=== PATIENT | male | born 1940 | race Caucasian/White ===

== ENCOUNTER 2018-01-17 10:03 | Inpatient (IN) | payer OTHER ==
[~2018-01-17] VITALS: Ht 167.6 cm; Wt 57.2 kg
[2018-01-17 10:52] LABS: BASOPHILS % (AUTO) 0.7 % (0.0-5.0); EOSINOPHILS % (AUTO) 1.6 % (0.0-8.0); LYMPHOCYTES % (AUTO) 14.4 % (21.0-51.0); MEAN CORPUSCULAR HEMOGLOBIN 24.8 pg (27.0-33.0); MEAN CORPUSCULAR HGB CONC 32.1 g/dL (32.0-36.0); MEAN CORPUSCULAR VOLUME 77.3 fL (79-99); MONOCYTES % (AUTO) 12.2 % (3.0-13.0); NEUTROPHILS % (AUTO) 71.1 % (40.0-77.0); PLATELET COUNT (AUTO) 440 K/uL (130-400); RED BLOOD CELL COUNT(AUTO) 2.98 MIL/uL (4.50-6.20); RED CELL DISTRIBUTION WIDTH 18.2 % (11.0-15.5); WHITE BLOOD COUNT (AUTO) 10.4 K/uL (4.8-10.8)
[2018-01-17] MEDS ORDERED: SODIUM CHLORIDE 0.9% 1000ML 1,000 ML IV ONE (10:58)
[2018-01-17 11:03] LABS: CREATININE 1.3 mg/dL (0.5-1.5); POTASSIUM 3.8 mmol/L (3.5-5.1)
[2018-01-17 11:09] LABS: ALBUMIN 2.5 g/dL (3.5-5.0); BILIRUBIN,TOTAL 0.3 mg/dL (0.2-1.0); TOTAL PROTEIN, SERUM 7.2 g/dL (6.0-8.3)
[2018-01-17 12:14] LABS: AMPHET/METH SCREEN,URINE NEGATIVE (NEGATIVE); BARBITURATE SCREEN, URINE NEGATIVE (NEGATIVE); BENZODIAZEPINES SCREEN,URINE NEGATIVE (NEGATIVE); CANNABINOID SCREEN,URINE NEGATIVE (NEGATIVE); COCAINE SCREEN,URINE NEGATIVE (NEGATIVE); OPIATE SCREEN,URINE NEGATIVE (NEGATIVE); PHENCYCLIDINE SCREEN,URINE NEGATIVE (NEGATIVE)
[2018-01-17] MEDS ORDERED: VANCOMYCIN 1GM+NS 250ML 250 ML IV ONE (12:24)
[2018-01-17] MEDS ORDERED: ZOSYN 3.375GM+NS 50ML 50 ML IV ONE (19:18)
[2018-01-17 23:40] VITALS: BP 150/78
[2018-01-18] MEDS ORDERED: ACETAMINOPHEN 325 MG TAB PO PRN (02:45)
[2018-01-18] MEDS ORDERED: VANCOMYCIN PROTOCOL PER PHARMACY IV SCH (02:45)
[2018-01-18 04:00] VITALS: BP 126/70
[2018-01-18] MEDS: ZOSYN 3.375GM+NS 50ML 50 ML IV SCH ×3 (04:25→22:34)
[2018-01-18] MEDS: SODIUM CHLORIDE 0.9% 1000ML 1,000 ML IV SCH ×2 (04:32→13:48)
[2018-01-18] MEDS: ACETAMINOPHEN 325 MG TAB PO PRN ×2 (04:32→13:57)
[2018-01-18 05:15] LABS: BASOPHILS % (AUTO) 1.2 % (0.0-5.0); EOSINOPHILS % (AUTO) 1.8 % (0.0-8.0); HEMATOCRIT 23.9 % (42-54); LYMPHOCYTES % (AUTO) 18.8 % (21.0-51.0); MEAN CORPUSCULAR HEMOGLOBIN 24.7 pg (27.0-33.0); MEAN CORPUSCULAR HGB CONC 32.5 g/dL (32.0-36.0); MEAN CORPUSCULAR VOLUME 76.1 fL (79-99); MONOCYTES % (AUTO) 11.5 % (3.0-13.0); NEUTROPHILS % (AUTO) 66.7 % (40.0-77.0); PLATELET COUNT (AUTO) 495 K/uL (130-400); RED BLOOD CELL COUNT(AUTO) 3.14 MIL/uL (4.50-6.20); RED CELL DISTRIBUTION WIDTH 18.4 % (11.0-15.5); WHITE BLOOD COUNT (AUTO) 12.2 K/uL (4.8-10.8)
[2018-01-18 05:16] LABS: RETICULOCYTE % (AUTO) 1.6 % (0.42-2.23)
[2018-01-18 05:40] LABS: CREATININE 1.1 mg/dL (0.5-1.5); THYROID STIMULATING HORMONE 1.55 uIU/mL (0.36-3.74)
[2018-01-18 05:51] LABS: % IRON SATURATION 5.3 % (30-44)
[2018-01-18 05:54] LABS: HEMOGLOBIN A1C 5.6 % (4.0-6.0)
[2018-01-18 08:00] VITALS: BP 143/60
[2018-01-18] MEDS: FOLIC ACID 1 MG TABLET PO SCH (08:51)
[2018-01-18] MEDS: MULTIVITAMIN TABLET PO SCH (08:51)
[2018-01-18] MEDS: THIAMINE HCL 100 MG TABLET PO SCH (08:51)
[2018-01-18] MEDS: VANCOMYCIN 1GM+NS 250ML 250 ML IV SCH (09:10)
[2018-01-18] MEDS: TRAMADOL HCL 50 MG TABLET PO PRN ×2 (09:10→17:09)
[2018-01-18] MEDS: LORAZEPAM 0.5 MG TABLET PO PRN (09:13)
[2018-01-18 11:00] VITALS: BP 122/72
[2018-01-18] MEDS ORDERED: COMPOUND IV MISC 1 EACH IVSOLN MISC PRN (13:30)
[2018-01-18 16:00] VITALS: BP 111/52
[2018-01-18 19:00] VITALS: BP 114/60
[2018-01-18] MEDS ORDERED: MORPHINE SULFATE 2 MG/ML 1ML SYG IVP PRN (20:15)
[2018-01-18 23:00] VITALS: BP 113/52
[2018-01-19 04:05] VITALS: BP 133/48
[2018-01-19] MEDS: ZOSYN 3.375GM+NS 50ML 50 ML IV SCH ×3 (05:01→21:14)
[2018-01-19] MEDS: TRAMADOL HCL 50 MG TABLET PO PRN ×3 (05:22→22:50)
[2018-01-19 08:00] VITALS: BP 134/82
[2018-01-19] MEDS: MULTIVITAMIN TABLET PO SCH (09:10)
[2018-01-19] MEDS: THIAMINE HCL 100 MG TABLET PO SCH (09:10)
[2018-01-19] MEDS: VANCOMYCIN 1GM+NS 250ML 250 ML IV SCH ×2 (09:10→09:22)
[2018-01-19] MEDS: FOLIC ACID 1 MG TABLET PO SCH (09:10)
[2018-01-19] MEDS: LORAZEPAM 0.5 MG TABLET PO PRN (09:10)
[2018-01-19] MEDS: IRON SUCROSE COMPLEX 100 MG in SODIUM CHLORIDE 0.9% 50 ML IV SCH (09:22)
[2018-01-19] MEDS: SODIUM CHLORIDE 0.9% 1000ML 1,000 ML IV SCH (09:27)
[2018-01-19] MEDS ORDERED: MORPHINE SULFATE 4 MG/1ML SYG ONE ×2 (09:49→16:59)
[2018-01-19 11:00] VITALS: BP 133/55
[2018-01-19 16:00] VITALS: BP 128/53
[2018-01-19 19:00] VITALS: BP 100/46
[2018-01-19] MEDS ORDERED: LIDOCAINE HCL/EPINEPHRINE 50 ML VIAL IJ SCH (19:00)
[2018-01-19] MEDS ORDERED: FERROUS SULFATE 325 MG TABLET.DR PO SCH (21:00)
[2018-01-19 23:00] VITALS: BP 100/49
[2018-01-20] MEDS: SODIUM CHLORIDE 0.9% 1000ML 1,000 ML IV SCH ×2 (02:03→14:46)
[2018-01-20 03:00] VITALS: BP 113/57
[2018-01-20] MEDS: ZOSYN 3.375GM+NS 50ML 50 ML IV SCH ×3 (04:42→20:37)
[2018-01-20] MEDS: TRAMADOL HCL 50 MG TABLET PO PRN (04:43)
[2018-01-20 05:07] LABS: HEMATOCRIT 21.7 % (42-54); MEAN CORPUSCULAR HEMOGLOBIN 24.9 pg (27.0-33.0); MEAN CORPUSCULAR HGB CONC 32.7 g/dL (32.0-36.0); MEAN CORPUSCULAR VOLUME 76.3 fL (79-99); PLATELET COUNT (AUTO) 436 K/uL (130-400); RED BLOOD CELL COUNT(AUTO) 2.85 MIL/uL (4.50-6.20); RED CELL DISTRIBUTION WIDTH 18.5 % (11.0-15.5)
[2018-01-20 05:15] LABS: ALBUMIN 1.9 g/dL (3.5-5.0); BILIRUBIN,TOTAL 0.2 mg/dL (0.2-1.0); MAGNESIUM 1.8 mg/dL (1.80-2.40); PHOSPHORUS 3.3 mg/dL (2.5-4.9); POTASSIUM 4.3 mmol/L (3.5-5.1)
[2018-01-20] MEDS ORDERED: MORPHINE SULFATE 4 MG/1ML SYG ONE (05:44)
[2018-01-20 08:00] VITALS: BP 130/60
[2018-01-20] MEDS: MULTIVITAMIN TABLET PO SCH (08:53)
[2018-01-20] MEDS: FOLIC ACID 1 MG TABLET PO SCH (08:53)
[2018-01-20] MEDS: IRON SUCROSE COMPLEX 100 MG in SODIUM CHLORIDE 0.9% 50 ML IV SCH (08:54)
[2018-01-20] MEDS: THIAMINE HCL 100 MG TABLET PO SCH (08:54)
[2018-01-20] MEDS ORDERED: LIDOCAINE 1%-EPI 1:100,000 20 ML VIAL IJ ONE (08:55)
[2018-01-20] MEDS: ACETAMINOPHEN 325 MG TAB PO PRN ×3 (09:09→20:44)
[2018-01-20 12:00] VITALS: BP 131/59
[2018-01-20] MEDS ORDERED: MAGNESIUM 2GM PREMIX 50ML 50 ML IV SCH (12:45)
[2018-01-20] MEDS: VANCOMYCIN 1GM+NS 250ML 250 ML IV SCH (14:20)
[2018-01-20 16:00] VITALS: BP 126/75
[2018-01-20 19:00] VITALS: BP 122/69
[2018-01-20 23:00] VITALS: BP 130/55
[2018-01-21] MEDS: SODIUM CHLORIDE 0.9% 1000ML 1,000 ML IV SCH (01:59)
[2018-01-21] MEDS: ACETAMINOPHEN 325 MG TAB PO PRN (02:49)
[2018-01-21 03:00] VITALS: BP 142/67
[2018-01-21] MEDS: ZOSYN 3.375GM+NS 50ML 50 ML IV SCH ×3 (04:49→20:06)
[2018-01-21] MEDS: TRAMADOL HCL 50 MG TABLET PO PRN ×3 (06:57→21:44)
[2018-01-21 08:00] VITALS: BP 125/59
[2018-01-21 11:00] VITALS: BP 137/67
[2018-01-21] MEDS: FOLIC ACID 1 MG TABLET PO SCH (11:40)
[2018-01-21] MEDS: MULTIVITAMIN TABLET PO SCH (11:40)
[2018-01-21] MEDS: THIAMINE HCL 100 MG TABLET PO SCH (11:40)
[2018-01-21] MEDS: IRON SUCROSE COMPLEX 100 MG in SODIUM CHLORIDE 0.9% 50 ML IV SCH (11:46)
[2018-01-21] MEDS ORDERED: COMPOUND IV REFRIGERATED 1 EACH IVSOLN MISC PRN (12:00)
[2018-01-21 16:00] VITALS: BP 141/76
[2018-01-21] MEDS: VANCOMYCIN 1.25 GM in SODIUM CHLORIDE 0.9% 250 ML IV SCH (16:10)
[2018-01-21] MEDS ORDERED: MORPHINE SULFATE 4 MG/1ML SYG ONE (16:15)
[2018-01-21 20:00] VITALS: BP 116/60
[2018-01-21] MEDS: LORAZEPAM 0.5 MG TABLET PO PRN (22:41)
[2018-01-22] VITALS: BP 120/58
[2018-01-22] MEDS: ACETAMINOPHEN 325 MG TAB PO PRN (03:16)
[2018-01-22] MEDS: ZOSYN 3.375GM+NS 50ML 50 ML IV SCH ×3 (03:16→21:00)
[2018-01-22 04:00] VITALS: BP 130/77
[2018-01-22] MEDS: SODIUM CHLORIDE 0.9% 1000ML 1,000 ML IV SCH ×2 (06:27→21:00)
[2018-01-22 08:00] VITALS: BP 128/58
[2018-01-22 11:00] VITALS: BP 109/49
[2018-01-22] MEDS: THIAMINE HCL 100 MG TABLET PO SCH (11:33)
[2018-01-22] MEDS: FOLIC ACID 1 MG TABLET PO SCH (11:33)
[2018-01-22] MEDS: TRAMADOL HCL 50 MG TABLET PO PRN ×2 (11:33→23:40)
[2018-01-22] MEDS: MULTIVITAMIN TABLET PO SCH (11:33)
[2018-01-22] MEDS: IRON SUCROSE COMPLEX 100 MG in SODIUM CHLORIDE 0.9% 50 ML IV SCH (11:35)
[2018-01-22] MEDS: VANCOMYCIN 1.25 GM in SODIUM CHLORIDE 0.9% 250 ML IV SCH (13:24)
[2018-01-22 16:00] VITALS: BP 124/52
[2018-01-22] MEDS ORDERED: MORPHINE SULFATE 4 MG/1ML SYG ONE (17:42)
[2018-01-22 20:00] VITALS: BP 112/48
[2018-01-23] VITALS: BP 126/72
[2018-01-23] MEDS: ZOSYN 3.375GM+NS 50ML 50 ML IV SCH ×2 (03:35→13:54)
[2018-01-23 04:00] VITALS: BP 128/58
[2018-01-23] MEDS: ACETAMINOPHEN 325 MG TAB PO PRN (05:05)
[2018-01-23 05:49] LABS: HEMATOCRIT 24.9 % (42-54); MEAN CORPUSCULAR HGB CONC 32.1 g/dL (32.0-36.0); NUCLEATED RED BLOOD CELLS 0.1 % (0.0-0.19); PLATELET COUNT (AUTO) 548 K/uL (130-400); RED BLOOD CELL COUNT(AUTO) 3.19 MIL/uL (4.50-6.20); RED CELL DISTRIBUTION WIDTH 18.7 % (11.0-15.5); WHITE BLOOD COUNT (AUTO) 13.4 K/uL (4.8-10.8)
[2018-01-23] MEDS: SODIUM CHLORIDE 0.9% 1000ML 1,000 ML IV SCH ×2 (06:03→11:27)
[2018-01-23 08:00] VITALS: BP 140/56
[2018-01-23] MEDS ORDERED: MORPHINE SULFATE 4 MG/1ML SYG ONE (11:58)
[2018-01-23 12:00] VITALS: BP 139/54
[2018-01-23] MEDS: VANCOMYCIN 1.25 GM in SODIUM CHLORIDE 0.9% 250 ML IV SCH (12:07)
[2018-01-23] MEDS: IRON SUCROSE COMPLEX 100 MG in SODIUM CHLORIDE 0.9% 50 ML IV SCH (12:22)
[2018-01-23] MEDS: FOLIC ACID 1 MG TABLET PO SCH (12:23)
[2018-01-23] MEDS: MULTIVITAMIN TABLET PO SCH (12:30)
[2018-01-23] MEDS: THIAMINE HCL 100 MG TABLET PO SCH (12:30)
[2018-01-23] MEDS: TRAMADOL HCL 50 MG TABLET PO PRN ×2 (12:57→16:38)
[2018-01-23 16:00] VITALS: BP 134/55
[2018-01-23] MEDS ORDERED: SODIUM CHLORIDE 0.9% 250 ML IV ONE (20:12)
[2018-01-23] MEDS: LEVOFLOXACIN 500 MG/D5W 100 ML 100 ML IV SCH (20:15)
[2018-01-23 20:32] VITALS: BP 127/51
[2018-01-24] MEDS: ACETAMINOPHEN 325 MG TAB PO PRN ×3 (00:10→19:03)
[2018-01-24 00:13] VITALS: BP 133/64
[2018-01-24 04:30] VITALS: BP 134/60
[2018-01-24] MEDS: IRON SUCROSE COMPLEX 100 MG in SODIUM CHLORIDE 0.9% 50 ML IV SCH (08:33)
[2018-01-24] MEDS: FLUCONAZOLE 100 MG TAB PO SCH (08:34)
[2018-01-24 08:50] VITALS: BP 134/64
[2018-01-24] MEDS: MULTIVITAMIN TABLET PO SCH (08:55)
[2018-01-24] MEDS: THIAMINE HCL 100 MG TABLET PO SCH (08:55)
[2018-01-24] MEDS: FOLIC ACID 1 MG TABLET PO SCH (08:55)
[2018-01-24 11:05] VITALS: BP 136/64
[2018-01-24] MEDS: TRAMADOL HCL 50 MG TABLET PO PRN ×2 (12:20→23:05)
[2018-01-24] MEDS: VANCOMYCIN 1.5 GM in SODIUM CHLORIDE 0.9% 250 ML IV SCH (13:17)
[2018-01-24] MEDS ORDERED: MORPHINE SULFATE 4 MG/1ML SYG ONE (15:17)
[2018-01-24 17:48] VITALS: BP 139/79
[2018-01-24] MEDS: LEVOFLOXACIN 500 MG/D5W 100 ML 100 ML IV SCH (20:45)
[2018-01-24 20:57] VITALS: BP 124/76
[2018-01-25 00:26] VITALS: BP 140/68
[2018-01-25] MEDS: ACETAMINOPHEN 325 MG TAB PO PRN (03:27)
[2018-01-25 04:39] VITALS: BP 135/73
[2018-01-25 08:00] VITALS: BP 124/76
[2018-01-25] MEDS: THIAMINE HCL 100 MG TABLET PO SCH (08:07)
[2018-01-25] MEDS: FLUCONAZOLE 100 MG TAB PO SCH (08:07)
[2018-01-25] MEDS: FOLIC ACID 1 MG TABLET PO SCH (08:07)
[2018-01-25] MEDS: MULTIVITAMIN TABLET PO SCH (08:07)
[2018-01-25] MEDS: IRON SUCROSE COMPLEX 100 MG in SODIUM CHLORIDE 0.9% 50 ML IV SCH (08:07)
[2018-01-25] MEDS: TRAMADOL HCL 50 MG TABLET PO PRN (08:07)
[2018-01-25 12:00] VITALS: BP 116/48
[2018-01-25] MEDS ORDERED: ACET-2247 PO (13:12)
[2018-01-25] MEDS ORDERED: FOLI1TAB15 PO (13:12)
[2018-01-25] MEDS ORDERED: THIAM100TB PO (13:12)
[2018-01-25] MEDS: VANCOMYCIN 1.5 GM in SODIUM CHLORIDE 0.9% 250 ML IV SCH (13:14)
[2018-01-25 16:00] VITALS: BP 132/63
== END 2018-01-25 18:30 | DRG 603 ==
LOC: EDH 10:03 → OBSVTOIN 18:18 → EDHIP 18:18 → 3DH 23:34 → 3BH 23:39 → UNDODISOB 01-19 12:50
PROVIDERS: ADMIT Internal Medicine; ATTEND Internal Medicine
PROC: 0JB00ZX Excision of Scalp Subcutaneous Tissue and Fascia, Open Approach, Diagnostic (ICD-10-PCS; principal; 2018-01-21)
DX: L03.811 Cellulitis of head [any part, except face] (principal); E44.0 Moderate protein-calorie malnutrition; E11.9 Type 2 diabetes mellitus without complications; E78.5 Hyperlipidemia, unspecified; I10 Essential (primary) hypertension; D50.9 Iron deficiency anemia, unspecified; J44.9 Chronic obstructive pulmonary disease, unspecified; D69.6 Thrombocytopenia, unspecified; R79.89 Other specified abnormal findings of blood chemistry; H54.62 Unqualified visual loss, left eye, normal vision right eye; F10.10 Alcohol abuse, uncomplicated; R53.81 Other malaise; R51 Headache; J84.10 Pulmonary fibrosis, unspecified; Z87.891 Personal history of nicotine dependence; Z74.01 Bed confinement status; Z91.19 Patient's noncompliance with other medical treatment and regimen; Z86.19 Personal history of other infectious and parasitic diseases; Z86.12 Personal history of poliomyelitis; Z80.1 Family history of malignant neoplasm of trachea, bronchus and lung; Z80.51 Family history of malignant neoplasm of kidney
CPT/HCPCS: 36415; 70450; 71046; 80048; 80053; 80061; 80202; 80305; 82607; 82728; 82746; 82948; 83036; 83605; 83735; 84100; 84153; 84443; 85025; 85027; 87040; 87070; 87076; 87077; 87106; 87186; 88305; 93005; 97039; J1756; J1956; J2270; J2543; J3370; J3475; J3490; J7030